=== PATIENT | female | born 1980 | race African-American/Black ===

== ENCOUNTER 2020-09-15 02:07 | Emergency (ER) | payer OTHER ==
[~2020-09-15] VITALS: Ht 154.9 cm; Wt 82.6 kg
[2020-09-15 02:20] VITALS: BP_SYST 128
== END 2020-09-15 02:19 | disposition home or self-care (01) ==
LOC: SED 02:07 → EDBD 02:07 → SED 02:19
DX: Z76.5 Malingerer [conscious simulation] (principal)
CPT/HCPCS: 99281